=== PATIENT | female | born 1990 | race Caucasian/White ===

== ENCOUNTER 2016-11-17 10:45 | Outpatient (CLI) | payer OTHER ==
[2016-11-17 15:47] LABS: Free T4 (Free Thyroxine) 0.74 ng/dL (0.70-1.48); Thyroid Stimulating Hormone 9.2414 uIU/mL (0.35-4.94)
== END 2016-11-17 10:46 | disposition home or self-care (01) ==
LOC: MADLABBHPM 10:45
PROVIDERS: ATTEND Family Medicine
DX: E03.9 Hypothyroidism, unspecified (principal)
CPT/HCPCS: 36415; 84439; 84443

== ENCOUNTER 2017-03-15 23:39 | Emergency (ER) | payer OTHER ==
[~2017-03-15 23:39] MED LIST: Donnatal Elixir 16.2 MG/5 ML UDCUP ONE; Iopamidol 370 76% 100 ML VIAL ONE; Sodium Chloride 0.9% 1,000 ML BAG ONE
[2017-03-16] MEDS ORDERED: Lidocaine Viscous Sol 2% 15 ml UD Cup ONE (00:43)
[2017-03-16] MEDS ORDERED: Donnatal Elixir 16.2 MG/5 ML UDCUP ONE (00:43)
[2017-03-16] MEDS ORDERED: Ketorolac Tromethamine 30 MG/ML VIAL ONE (00:43)
[2017-03-16] MEDS ORDERED: Ondansetron HCl/PF 4 MG/2 ML Vial ONE (00:43)
[2017-03-16] MEDS ORDERED: Mag-Al Plus 1200 MG/1200 MG/120 MG/30 ML UDCUP ONE (00:43)
[2017-03-16 01:22] LABS: ALT (SGPT) 27 U/L (8-55); AST (SGOT) 19 U/L (5-34); Alkaline Phosphatase 94 U/L (40-150); Anion Gap 14 mmol/L (10-20); BUN (Urea Nitrogen) 14 mg/dL (7.0-18.7); Bilirubin, Total 0.4 mg/dL (0.2-1.2); Calc. Creatinine Clearance 0 mL/min (70-130); Calcium 9.8 mg/dL (7.8-10.44); Carbon Dioxide 25 mmol/L (22-29); Chloride 103 mmol/L (98-107); Estimated GFR-MDRD 73; Glucose 122 mg/dL (70-105); Lipase 10 U/L (8-78); Potassium 4.1 mmol/L (3.5-5.1); Sodium 138 mmol/L (136-145)
[2017-03-16 01:23] LABS: #Basophils 0.1 thou/uL (0.0-0.2); #Eosinphils 0.1 thou/uL (0.0-0.7); #Lymphocytes 2.3 thou/uL (1.20-3.40); #Monocytes 0.5 thou/uL (0.11-0.59); #Neutrophils 8.7 thou/uL (1.40-6.50); %Basophils 0.7 % (0.0-1.0); %Eosinophils 0.5 % (0.0-10.0); %Lymphocytes 19.8 % (21.0-51.0); %Neutrophils 74.9 % (42.0-75.0); Hemoglobin 13.6 g/dL (12.0-16.0); Mean Corpuscular HGB CONC 34.8 g/dL (32.0-36.0); Mean Corpuscular Hemoglobin 29.5 pg (27.0-31.0); Mean Corpuscular Volume 84.9 fl (81.0-99.0); Mean Platelet Volume 8.3 fL (7.4-10.4); Platelet Count 223 thou/uL (130-400); White Blood Cell (WBC) Count 11.6 thou/uL (4.8-10.8)
[2017-03-16 02:07] LABS: Bilirubin Negative (Negative); Blood, Urine Negative (Negative); Clarity Clear (Clear); Glucose, Urine (Dipstick) Negative (Negative); Leukocyte Negative (Negative); Nitrite Negative (Negative); Protein, Urine (Dipstick) Negative (Neg-Trace); Specific Gravity, Urine 1.025 (1.005-1.030); Urobilinogen 0.2 mg/dL (0.2-1.0)
[2017-03-16 02:08] LABS: Bacteria/HPF Rare-Few HPF (None Seen); RBC/HPF 0-3 HPF (0-3); Renal Epithelial 0-3 HPF (0-3); Transitional Epithelial 0-3 HPF (0-3); WBC/HPF 0-3 HPF (0-3)
--- NOTE | 2017-03-16 07:25 | ULT ---
PRELIMINARY REPORT/[facility]/EMERGENCY AFTER HOURS PROCEDURE: EXAM: US Abdomen Limited, Right Upper Quadrant CLINICAL HISTORY: 26 years old, female; Pain; Abdominal pain; Epigastric; Patient HX: Ruq pain since 7: 00 p. M. The night before; Additional info: Negative julio; CT done earlier in evening - read by [facility] TECHNIQUE: Real-time ultrasound of the right upper quadrant with image documentation. COMPARISON: CT Abdomen Pelvis W Con 03/16/2017 2:48:45 AM FINDINGS: Liver: Unremarkable. No mass. No intrahepatic bile duct dilation. Gallbladder: The gallbladder wall is within normal limits at 1.9 mm. Julio sign was reported as neg ative the sonographic technologist. No gallstones. Common bile duct: Common bile duct is within normal limits at 2.1 mm. No stones. No dilation. Pancreas: Unremarkable as visualized. Right kidney: The right kidney is normal in echogenicity and measures 11.5 cm in length. No stones. No hydronephrosis. Aorta: Visualized aorta is within normal limits. IMPRESSION: No acute sonographic abnormality. Thank you for allowing us to participate in the care of your patient. Dictated and Authenticated by: Janet Elizondo MD 03/16/2017 5:12 AM Central Time ([place] \T\ [place]) FINAL REPORT RIGHT UPPER QUADRANT ULTRASOUND: INDICATION: Right upper quadrant pain. FINDINGS: No focal hepatic lesion is evident. The right kidney measured 11.5 x 4.5 x 4.1 cm. The visualized gallbladder is unremarkable. No sono graphic Julio's sign is reported. Common bile duct measures 2.1 mm. Visualized aspects of the rodriguez creas are unremarkable-appearing. IMPRESSION: No acute sonographic abnormality within the right upper quadrant. Agree with the preliminary report provided. POS: [facility]
--- NOTE | 2017-03-16 07:32 | CT ---
PRELIMINARY REPORT/[facility]/EMERGENCY AFTER HOURS PROCEDURE: EXAM: CT Abdomen and Pelvis With Intravenous Contrast CLINICAL HISTORY: 26 years old, female; Pain; Abdominal pain; Epigastric TECHNIQUE: Axial computed tomography images of the abdomen and pelvis with intravenous contrast. All CT scans a t this facility use one or more dose reduction techniques, viz.: automated exposure control; ma/kV a djustment per patient size (including targeted exams where dose is matched to indication; i.e. head) ; or iterative reconstruction technique. CONTRAST: 90 mL of isovue 370 administered intravenously. COMPARISON: No relevant prior studies available. FINDINGS: Lower thorax: No acute findings. ABDOMEN: Liver: Unremarkable. No mass. Gallbladder and bile ducts: Unremarkable. No calcified stones. No ductal dilation. Pancreas: Unremarkable. No mass. No ductal dilation. Spleen: Unremarkable. No splenomegaly. Adrenals: Unremarkable. No mass. Kidneys and ureters: Mild right hydronephrosis and hydroureter. Stomach and bowel: Unremarkable. No obstruction. No mucosal thickening. Appendix: Normal appendix. PELVIS: Bladder: Unremarkable. No mass. Reproductive: A tampon is seen in the vagina. ABDOMEN and PELVIS: Intraperitoneal space: Unremarkable. No free air. No significant fluid collection. Bones/joints: No acute fracture. No dislocation. Soft tissues: Unremarkable. Vasculature: Unremarkable. No abdominal aortic aneurysm. Lymph nodes: Unremarkable. No enlarged lymph nodes. IMPRESSION: Mild right hydronephrosis without visualized uroliths. Thank you for allowing us to participate in the care of your patient. Dictated and Authenticated by: Janet Elizondo MD 03/16/2017 3:31 AM Central Time ([place] \T\ [place]) FINAL REPORT CT OF THE ABDOMEN AND PELVIS WITH IV CONTRAST: COMPARISON: None. FINDINGS: There is mild right-sided hydronephrosis and right hydroureter. There is a 5 mm calcific density se en at the level of the urogenital diaphragm of the lower pelvis on image 91 of series 2 measuring 5 mm. This is slightly off midline and may reflect a small urethral diverticulum; however, a urethral stone passed from the right-sided ureter is of potential concern. The bladder is not overly disten ded. There is a 2.5 stone involving the inferior pole of the right kidney. There are small hypoden sities involving both kidneys that are too small to characterize but statistically likely reflecting cysts. The spleen is upper limits of normal for size measuring 12.7 cm. The liver, pancreas, and adrenal g lands appear within normal limits. There is a normal retrocecal appendix. There is gas within the vaginal vault. There are mildly prominent follicles within both adnexa. IMPRESSION: 1. Mild right hydronephrosis. There is a small stone seen at the level of the urogenital diaphragm near the expected region of the urethra which can be reflecting a passing urethral stone. Recommen d correlation with the clinical exam and urinary laboratories. Alternatively, this may reflect a sm all calcification within a urethral diverticulum. Recommend clinical followup. 2. Right nephrolithiasis. 3. Renal hypodensities, too small to characterize. POS: [facility]
--- NOTE | 2017-03-16 07:36 | RAD ---
AP VIEW CHEST: INDICATIONS: Upper abdominal pain. FINDINGS: The lungs are clear. The cardiomediastinal silhouette is within normal limits. No acute osseous ab normality is evident. IMPRESSION: No acute cardiopulmonary abnormality. POS: [facility]
== END 2017-03-16 06:30 | disposition home or self-care (01) ==
LOC: MADERS 23:39
DX: N13.2 Hydronephrosis with renal and ureteral calculous obstruction (principal); F41.9 Anxiety disorder, unspecified
CPT/HCPCS: 36415; 71010; 74177; 76705; 80053; 81001; 82150; 83605; 83690; 85025; 87086; J1885; J2270; J2405; J7050